=== PATIENT | female | born 1990 | race African-American/Black ===

== ENCOUNTER 2016-12-04 22:17 | Emergency (ER) | payer SELFPAY ==
[~2016-12-04] VITALS: Ht 170.2 cm; Wt 54.4 kg
[2016-12-04 22:54] LABS: Urine Bilirubin Negative (Negative); Urine Color Yellow (Yellow); Urine Glucose Normal (Normal); Urine Ketone Negative (Negative); Urine RBC 84 /hpf (0 - 4); Urine Squamous Epithelial Cell FEW /hpf (<5); Urine Urobilinogen Normal (Negative); Urine WBC Clumps PRESENT /hpf (None Seen); Urine pH 5.5 (5.0-8.0)
[2016-12-04 22:55] LABS: Urine Blood 2+ /uL (Negative); Urine Nitrite POSITIVE (Negative)
[2016-12-05] MEDS ORDERED: cefTRIAXone SOD 1,000 MG VL IM ONE (00:45)
[2016-12-05 01:30] VITALS: BP 120/76
== END 2016-12-05 01:34 | disposition home or self-care (01) ==
LOC: ER 22:21
DX: N39.0 Urinary tract infection, site not specified (principal)
CPT/HCPCS: 81001; 96372; 99283; J0696